=== PATIENT | female | born 1965 | race Caucasian/White ===

== ENCOUNTER → 2019-05-21 | Day surgery (SDC) | payer OTHER ==
[~2019-05-21] MED LIST: CETI10TA22 PO; COLE1TAB2 PO; LIDOCAINE 1%/EPI 1:100,000 20 ML VIAL. INJ ONE
[2019-05-21 09:14] VITALS: BP 114/59
--- NOTE | 2019-05-21 10:32 | PDOC ---
BRIEF OPERATIVE NOTE Date: May 21, 2019 Pre-Op Diagnosis sebaceous cyst, left mid back Post-Op Diagnosis same Procedure Performed excision Surgeon Frank Anesthesia Type: Local Blood Loss <5 Specimens Obtained skin and subcutaneous tissue, left mid back Findings sebaceous cyst Complications none Operative Note Wk # [id number] SOTO MCARTHUR MD May 21, 2019 10:32
--- NOTE | 2019-05-21 10:42 | OP ---
DATE OF SURGERY: 05/21/2019 PREOPERATIVE DIAGNOSIS: Sebaceous cyst, left mid back. POSTOPERATIVE DIAGNOSIS: Sebaceous cyst, left mid back. PROCEDURE: Excision. SURGEON: Soto Mcarthur MD ANESTHESIA: Local. ESTIMATED BLOOD LOSS: Less than 5 mL. DESCRIPTION OF PROCEDURE: The patient was taken to the minor area. Timeout done. Placed in the prone position and the back, around the cyst, was prepped and draped in usual sterile fashion. An elliptical skin incision was infiltrated with 1% lidocaine with epinephrine, incised and the skin and underlying process removed intact. Hemostasis with cautery. Wound closed with interrupted inverted 3-0 Vicryl in the subcutaneous tissue. Subcuticular 4-0 Monocryl and Steri-Strips for the skin. Sterile dressing applied. The patient tolerated well and was released at the end of the procedure. SOTO MCARTHUR MD DR: LIANE/nts JOB#: [id number] / [id number]
--- NOTE | 2019-05-22 19:07 | PATHOLOGY ---
[facility] Accession Number: [id number] . 01 Material submitted: . back - SKIN AND SUBCUTANEOUS TISSUE, LEFT MID BACK. Modifiers: left, mid . 01 Clinical history: . Back cyst . 02 Diagnosis: Skin and subcutaneous tissue, left mid back: - Epidermal inclusion cyst. (JPM:shrimp peeling machine tender; 05/22/2019) MBR 05/22/2019 1636 Local . 02 Comment: There is no evidence of malignancy. (JPM:shrimp peeling machine tender; 05/22/2019) . 02 Electronically signed: . Mich Chavez MD, Pathologist NPI- [id number] . 01 Gross description: . Received in formalin labeled "Arianne Talavera, skin and subcutaneous tissue, left mid back," is an unoriented ellipse of johnson skin measuring 3.3 x 1.5 cm with underlying subcutaneous tissue excised to a depth of 1.0 cm. The resection margins are inked black. The skin surface displays a lesion that is poorly circumscribed, slightly raised, light johnson, measures 1.3 x 0.9 cm, and approaches the closest peripheral margin. Upon sectioning, the specimen reveals an underlying intact cystic cavity filled with dark brown friable material measuring 1.1 x 0.7 cm. Marine Plumber tissue submitted in cassette A1. (TSD; 05/21/2019) TOB/TOB 05/21/2019 1757 Local . 02 Pathologist provided ICD-10: L72.0 . 02 CPT . 154464 Specimen Comment: A courtesy copy of this report has been sent to [phone], [phone] Specimen Comment: [phone] Specimen Comment: Report sent to and Performed at: [address] [place] [address] [address], [place], [place] [id number] MD Toney Altamirano MD Phone: [phone] Performed at: [address] [id number] MD Mich Chavez MD Phone: [phone]
== END ==
LOC: SURG 08:47
PROVIDERS: ATTEND Surgery
DX: L72.3 Sebaceous cyst (principal); L72.0 Epidermal cyst
CPT/HCPCS: 11404; 88304; J3490